=== PATIENT | male | born 1980 | race Two or more races ===

== ENCOUNTER 2016-07-01 15:07 | Emergency (ER) | payer SELFPAY ==
[2016-07-01 15:47] LABS: COLOR YELLOW; LEUKOCYTE ESTERASE,URINE NEGATIVE (NEGATIVE); NITRITE,URINE NEGATIVE (NEGATIVE)
--- NOTE | 2016-07-01 16:07 | EDPHY ---
H & P Stated Complaint: Suprapubic pain, flank pain, difficulty urinating, difficulty with BM Time Seen by Provider: 07/01/16 15:14 HPI/ROS: CHIEF COMPLAINT: abdominal pain HISTORY OF PRESENT ILLNESS: 36-year-old male presents emergency department complaining of suprapubic abdominal pain for the past 3-4 weeks. Patient reports difficulty emptying his bladder. He also reports difficulty with bowel movements, states he feels a pressure in his rectum. Pain has increased over the last 3 days. Patient also reports that while having sex his ejaculates immediately upon penetration which is very abnormal for him. He denies penile discharge, denies history of STDs. Patient reports bilateral flank pain, left worse than right. Patient states he was told he has kidney disease though has not seen a doctor for this. He reports nausea, no vomiting, no fevers. REVIEW OF SYSTEMS: A comprehensive 10 point review of systems is otherwise negative aside from elements mentioned in the history of present illness. Source: Patient Exam Limitations: No limitations - Personal History Current Tetanus Diphtheria and Acellular Pertussis (TDAP): Yes - Medical/Surgical History Hx Asthma: No Hx Chronic Respiratory Disease: No Hx Diabetes: No Hx Cardiac Disease: No Hx Renal Disease: Yes Hx Cirrhosis: No Hx Alcoholism: No Hx HIV/AIDS: No Hx Splenectomy or Spleen Trauma: No Other PMH: HTN,. renal disease (followed at [facility]). "cluster migraines" - Social History Smoking Status: Never smoked Constitutional: Initial Vital Signs Temperature (C) 36.7 C 07/01/16 15:08 Heart Rate 71 07/01/16 15:08 Respiratory Rate 16 07/01/16 15:08 Blood Pressure 144/83 H 07/01/16 15:08 O2 Sat (%) 97 07/01/16 15:08 O2 Delivery Mode Room Air Allergies/Adverse Reactions: No Known Allergies Allergy (Verified 07/01/16 15:08) Home Medications: Medication Instructions Recorded Bufenorphine 07/01/16 Sulfamethox/Tmp 800/160 mg 1 tab PO BID 28 Days 07/01/16 [Bactrim Ds] Medical Decision Making - Diagnostics Imaging: Testicular ultrasound Impression: 1. No intratesticular masses. 2. Small left varicocele. 3. No definite inflammatory process. Final report concurs with initial preliminary interpretation. Dictated By: Ever L Isuani CT abdomen pelvis report called by radiologist as normal ED Course/Re-evaluation: IV established, urinalysis and lateral, CBC, chemistry panel obtained. The CT abdomen pelvis with IV contrast and testicular ultrasound has been ordered. Patient has a normal creatinine. Bladder scan shows 0 after voiding. CBC and chemistry panel are unremarkable, urinalysis is unremarkable, testicular ultrasound is normal, CT abdomen pelvis is normal. I will treat the patient with Zithromax and IM Rocephin for chlamydia and gonorrhea and with a prescription for Bactrim to treat prostatitis. Urine culture has been ordered. The patient is given [facility] information to follow up with. He is given return precautions for worsening symptoms, new symptoms or concerns, fevers, vomiting. Differential Diagnosis: Diagnosis considered but not limited to prostatitis, STD, UTI, ureteral calculi. - Data Points Laboratory Results: Laboratory Results 07/01/16 15:38 07/01/16 15:38 07/01/16 07/01/16 07/01/16 15:38 15:38 15:38 WBC 6.55 10^3/uL 10^3/uL (3.80-9.50) RBC 5.57 10^6/uL 10^6/uL (4.40-6.38) Hgb 16.9 g/dL g/dL (13.7-17.5) Hct 48.1 % % (40.0-51.0) MCV 86.4 fL fL (81.5-99.8) MCH 30.3 pg pg (27.9-34.1) MCHC 35.1 g/dL g/dL (32.4-36.7) RDW 12.3 % % (11.5-15.2) Plt Count 212 10^3/uL 10^3/uL (150-400) MPV 10.7 fL fL (8.7-11.7) Neut % (Auto) 57.9 % % (39.3-74.2) Lymph % (Auto) 31.6 % % (15.0-45.0) Mora % (Auto) 6.9 % % (4.5-13.0) Eos % (Auto) 3.2 % % (0.6-7.6) Baso % (Auto) 0.2 % L % (0.3-1.7) Nucleat RBC Rel Count 0.0 % % (0.0-0.2) Absolute Neuts (auto) 3.80 10^3/uL 10^3/uL (1.70-6.50) Absolute Lymphs (auto) 2.07 10^3/uL 10^3/uL (1.00-3.00) Absolute Monos (auto) 0.45 10^3/uL 10^3/uL (0.30-0.80) Absolute Eos (auto) 0.21 10^3/uL 10^3/uL (0.03-0.40) Absolute Basos (auto) 0.01 10^3/uL L 10^3/uL (0.02-0.10) Absolute Nucleated RBC 0.00 10^3/uL 10^3/uL (0-0.01) Immature Gran % 0.2 % % (0.0-1.1) Immature Gran # 0.01 10^3/uL 10^3/uL (0.00-0.10) Sodium 142 mEq/L mEq/L (134-144) Potassium 4.1 mEq/L mEq/L (3.5-5.2) Chloride 104 mEq/L mEq/L (97-110) Carbon Dioxide 25 mEq/l mEq/l (22-31) Anion Gap 13 mEq/L mEq/L (8-16) BUN 18 mg/dL mg/dL (7-23) Creatinine 0.9 mg/dL mg/dL (0.7-1.3) Estimated GFR > 60 Glucose 104 mg/dL H mg/dL (70-100) Calcium 9.9 mg/dL mg/dL (8.5-10.4) Urine Color Urine Appearance Urine pH Ur Specific [place] Urine Protein Urine Ketones Urine Blood Urine Nitrate Urine Bilirubin Urine Urobilinogen Ur Leukocyte Esterase Ur Culture Indicated? Urine Glucose C.trachomatis RNA (TMA) Pending N.gonorrhoeae RNA (TMA) Pending 07/01/16 15:38 WBC RBC Hgb Hct MCV MCH MCHC RDW Plt Count MPV Neut % (Auto) Lymph % (Auto) Mora % (Auto) Eos % (Auto) Baso % (Auto) Nucleat RBC Rel Count Absolute Neuts (auto) Absolute Lymphs (auto) Absolute Monos (auto) Absolute Eos (auto) Absolute Basos (auto) Absolute Nucleated RBC Immature Gran % Immature Gran # Sodium Potassium Chloride Carbon Dioxide Anion Gap BUN Creatinine Estimated GFR Glucose Calcium Urine Color YELLOW Urine Appearance CLEAR Urine pH 5.0 (5.0-7.5) Ur Specific [place] 1.023 (1.002-1.030) Urine Protein NEGATIVE (NEGATIVE) Urine Ketones NEGATIVE (NEGATIVE) Urine Blood NEGATIVE (NEGATIVE) Urine Nitrate NEGATIVE (NEGATIVE) Urine Bilirubin NEGATIVE (NEGATIVE) Urine Urobilinogen NEGATIVE EU EU (0.2-1.0) Ur Leukocyte Esterase NEGATIVE (NEGATIVE) Ur Culture Indicated? NOT INDICATED (NI) Urine Glucose NEGATIVE (NEGATIVE) C.trachomatis RNA (TMA) N.gonorrhoeae RNA (TMA) Medications Given: Discontinued Medications Ibuprofen (Motrin) 600 mg PO EDNOW ONE Stop: 07/01/16 16:20 Last Admin: 07/01/16 16:43 Dose: 600 mg Departure - Departure Disposition: Home, Routine, Self-Care Clinical Impression: Prostatitis, acute Condition: Good Instructions: Prostatitis (ED) Additional Instructions: Take 600 mg of ibuprofen every 8 hours for 5 days food, take Bactrim twice daily for 28 days. [facility] for [facility]-evaluation for symptoms that are not improving, return to the emergency department for fevers, vomiting , worsening symptoms, new symptoms or concerns. Referrals: [facility] [Outside] - As per Instructions Prescriptions: Sulfamethox/Tmp 800/160 mg [Bactrim Ds] 1 tab PO BID 28 Days
[2016-07-01 16:15] LABS: ANION GAP 13 mEq/L (8-16); CALCIUM 9.9 mg/dL (8.5-10.4); CARBON DIOXIDE 25 mEq/l (22-31); CHLORIDE 104 mEq/L (97-110); CREATININE 0.9 mg/dL (0.7-1.3); GLOMERULAR FILTRATION RATE > 60; GLUCOSE 104 mg/dL (70-100); POTASSIUM 4.1 mEq/L (3.5-5.2); SODIUM 142 mEq/L (134-144)
[2016-07-01 16:18] LABS: % IMMATURE GRANULYOCYTES 0.2 % (0.0-1.1); ABSOLUTE IMMATURE GRANULOCYTES 0.01 10^3/uL (0.00-0.10); ADD DIFF? NO; ADD MORPH? NO; ADD SCAN? NO; ATYPICAL LYMPHOCYTE FLAG 10 (0-99); FRAGMENT RBC FLAG 0 (0-99); HEMATOCRIT 48.1 % (40.0-51.0); HEMOGLOBIN 16.9 g/dL (13.7-17.5); LEFT SHIFT FLG 0 (0-99); LIPEMIA HEMOLYSIS FLAG 90 (0-99); MEAN CELL HEMOGLOBIN 30.3 pg (27.9-34.1); MEAN CELL HEMOGLOBIN CONCENTR. 35.1 g/dL (32.4-36.7); MEAN CELL VOLUME 86.4 fL (81.5-99.8); MEAN PLATELET VOLUME 10.7 fL (8.7-11.7); PLATELET CLUMPS FLAG 0 (0-99); PLATELET COUNT 212 10^3/uL (150-400); RED BLOOD CELL COUNT 5.57 10^6/uL (4.40-6.38); RED CELL DISTRIBUTION WIDTH 12.3 % (11.5-15.2)
[2016-07-01] MEDS ORDERED: IBUPROFEN 600 MG TAB PO ONE (16:19)
[2016-07-01] MEDS ORDERED: IOPAMIDOL (ISOVUE-300) 100 ML BTL IV ONE (16:32)
[2016-07-01] MEDS ORDERED: AZITHROMYCIN 250 MG TAB PO ONE (17:47)
[2016-07-01] MEDS ORDERED: CEFTRIAXONE IM 350 MG/ML SYRINGE IM ONE (17:47)
[2016-07-01 18:41] VITALS: BP 135/81; PULSE 57; RESP 18; TEMP 98.4; O2SAT 96
[2016-07-03 09:51] LABS: CHLAMYDIA AMPLIFICATION GENPRB NEGATIVE (NEGATIVE)
== END 2016-07-01 18:40 | disposition home or self-care (01) ==
DX: N41.9 Inflammatory disease of prostate, unspecified (principal); I10 Essential (primary) hypertension
CPT/HCPCS: J0696; Q9967

== ENCOUNTER 2017-10-05 13:25 | Emergency (ER) | payer SELFPAY ==
[2017-10-05 13:35] VITALS: BP 139/102
--- NOTE | 2017-10-05 13:42 | EDPHY ---
H & P Stated Complaint: Foreign Body in L ear [id number], KASPER, L eye disturbances, pain/ throbbing Source: Patient Exam Limitations: No limitations - Personal History Current Tetanus/Diphtheria Vaccine: Unsure Current Tetanus Diphtheria and Acellular Pertussis (TDAP): Unsure - Medical/Surgical History Hx Asthma: No Hx Chronic Respiratory Disease: No Hx Diabetes: No Hx Cardiac Disease: No Hx Renal Disease: Yes Hx Cirrhosis: No Hx Alcoholism: No Hx HIV/AIDS: No Hx Splenectomy or Spleen Trauma: No Other PMH: HTN,. renal disease (followed at [facility]). "cluster migraines" - Social History Smoking Status: Never smoked Time Seen by Provider: 10/05/17 13:41 HPI/ROS: HPI: This is a 37-year-old male who presents with Chief Complaint: Foreign Body in L ear [id number], KASPER, pain/throbbing Location: Left ear Quality: Pain Duration: 1 month Signs and Symptoms: no fever, no nausea, no vomiting, no photophobia, no noise sensitivity, no neck stiffness, + ear bleeding, no tinnitus, no nasal congestion , no sinus pressure, no weakness, no radiation, no aura, no rash, no weakness Timing: Daily, worsening Severity: Moderate Context: Patient reports that he uses Q-tips daily and feels like there has been some thin stuck in his ear for over 1 month. He admits to taking with Q- Tips in order to get foreign body sensation removed from his left ear. Over the last 2 days he has noted some blood tinged discharge on the Q-tip accompanied by left inner ear pain. He denies any recent upper respiratory symptoms/seasonal allergies. He placed hydrogen peroxide in his external auditory canal last night and felt like there was mild improvement in the pain. He has not been swimming recently. Denies any hearing loss, tinnitus, dizziness. Modifying Factors: See above Comment: ROS: see HPI Constitutional: No fever, no chills, no weight loss Eyes: No blurred vision Respiratory: No shortness of breath, no cough Cardiovascular: No chest pain, no palpitations Gastrointestinal: No nausea, no vomiting, no diarrhea, no hematemesis, no blood in stool Genitourinary: No dysuria, no blood in urine Extremities: No myalgias, no edema Neurologic: No weakness, no numbness Skin: No rashes, no petechiae Hematologic: No bruising, no bleeding MEDICAL/SURGICAL/SOCIAL HISTORY: Medical history: HTN, renal disease (followed at [facility]), "cluster migraines " Surgical history: Denies Social history: . Family history noncontributory. CONSTITUTIONAL: Extremely well-appearing adult male, awake and alert, no obvious distress HEENT: Atraumatic and normocephalic, PERRL, EOMI. Nares patent; no rhinorrhea; no nasal mucosal edema. Bilateral Tympanic membranes clear. Left external auditory canal shows at the 3 o'clock position hardened small piece of black wax , at the 6 o'clock position there is a superficial linear abrasion with mild surrounding erythema; no discharge; no occlusion. Tympanic membrane is intact. Oropharynx clear, no exudate and moist pink mucosa. Airway patent. No lymphadenopathy. No meningismus. Cardiovascular: Normal S1/S2, regular rate, regular rhythm, without murmur rub or gallop. PULMONARY/CHEST: Symmetrical and nontender. Clear to auscultation bilaterally. Good air movement. No accessory muscle usage. ABDOMEN: Soft, nondistended, nontender, no rebound, no guarding, no peritoneal signs, no masses or organomegaly. No CVAT. EXTREMITIES: 2/2 pulses, strength 5/5, no deformities, no clubbing, no cyanosis or edema. NEUROLOGICAL: no focal neuro deficits. GCS 15. SKIN: Warm and dry, no erythema. no rash. Good capillary refill. (Debbie Can) Constitutional: Initial Vital Signs Temperature (C) 37 C 10/05/17 13:32 Heart Rate 77 10/05/17 13:32 Respiratory Rate 16 10/05/17 13:32 Blood Pressure 139/102 H 10/05/17 13:32 O2 Sat (%) 97 10/05/17 13:32 O2 Delivery Mode Room Air Allergies/Adverse Reactions: No Known Allergies Allergy (Verified 07/01/16 15:08) Home Medications: Medication Instructions Recorded Bufenorphine 07/01/16 Sulfamethox/Tmp 800/160 mg 1 tab PO BID 28 Days tab 07/01/16 [Bactrim Ds] Ciprofloxacin HCl/Dexameth 4 drops OT BID 7 Days #7.5 ml 10/05/17 [Ciprodex Otic Suspension] oxyCODONE/APAP 5/325 [Percocet 1 - 2 tab PO Q4H PRN #10 tab 10/05/17 5/325 (*)] Medical Decision Making ED Course/Re-evaluation: Vital signs reviewed upon arrival in stable. No signs of systemic illness. Tympanic membrane is intact and does not show signs of infection. External auditory canal has a superficial abrasion with mild surrounding infection. No foreign body identified. Given a prescription for Ciprodex and Percocet This patient was seen under the supervision of my secondary supervising physician. I evaluated care for this patient independently. Discussed this patient with Dr. Fernandez who did not see the patient. (Debbie Can) Differential Diagnosis: Differential diagnosis includes but is not limited to tympanic membrane rupture , otitis media, otitis externa, cholesteatoma, acoustic neuroma, lymphadenitis. (Debbie Can) Other Provider: The patient was evaluated and managed by the Physician [employer]. I discussed the patient's presentation and course with the midlevel provider with them and agree with the evaluation. My co-signature indicates that I have reviewed this chart and I agree with the findings and plan of care as documented. I am the secondary supervising physician. (Paola Fernandez) Departure - Departure Disposition: Home, Routine, Self-Care Clinical Impression: Abrasion of left ear canal with infection Condition: Good Instructions: Otitis Externa (ED) Additional Instructions: Please use a cotton ball in your ears while showering for the next week. Do not use Q-Tips or place objects in your ear canals. Use Ciprodex ear drops twice daily for the next 7 days. Take Tylenol 650 mg every 4 hours and/or Ibuprofen 600 mg every 8 hours with food as needed for pain. Use Percocet every 6 hours as needed for severe/break through pain. Do not use Tylenol and Percocet concomitantly. Apply ice for 30 minutes at a time; 2-3 times per day for the next 1-2 days. Use [id number] antihistamines and nose sprays as needed for nasal congestion. Referrals: PCP Not In,Dictionary [Medical Doctor] - As per Instructions Prescriptions: Ciprofloxacin HCl/Dexameth [Ciprodex Otic Suspension] 4 drops OT BID 7 Days # 7.5 ml oxyCODONE/APAP 5/325 [Percocet 5/325 (*)] 1 - 2 tab PO Q4H PRN #10 tab PRN Reason: Pain, Severe
== END 2017-10-05 14:18 | disposition home or self-care (01) ==
DX: S00.412A Abrasion of left ear, initial encounter (principal); H60.392 Other infective otitis externa, left ear; I10 Essential (primary) hypertension; X58.XXXA Exposure to other specified factors, initial encounter